=== PATIENT | male | born 1945 | race Caucasian/White ===

== ENCOUNTER 2020-04-25 09:23 | Observation (INO) ==
[2020-04-25] MEDS ORDERED: IOPAMIDOL 100 ML BOTTLE IV ONE (09:24)
[2020-04-25] MEDS ORDERED: LACTATED RINGERS 1,000 ML IV ONE (09:41)
--- NOTE | 2020-04-25 10:00 | XRay Report ---
INDICATION: shortness of breath, fever TECHNIQUE: AP portable upright chest x-ray COMPARISON: Previous chest x-rays dated to 11/15/2015 and 10/26/2015 FINDINGS: Lungs:Lungs are negative. No focal pulmonary parenchymal infiltrate or mass Heart, vascular:No significant cardiomegaly. Pulmonary vascularity is normal. No pulmonary edema or pulmonary congestion Mediastinum, young:No mediastinal widening. No hilar mass Pleura:No pleural fluid. No pleural-based mass or calcification. Right hemidiaphragm is slightly elevated, unchanged Skeletal:Negative. IMPRESSION: Negative PA and lateral chest x-ray Interpreted and Authenticated by: Adam Archuleta 04/25/20
--- NOTE | 2020-04-25 10:13 | Emergency Department Note ---
SOB HPI General Chief Complaint: Shortness of Breath/Dyspnea Stated Complaint: Fever, SOB Time Seen by Provider: 04/25/20 09:50 Source: patient Mode of arrival: ambulatory Limitations: no limitations History of Present Illness HPI Narrative: Narrative: This patient has been ill with shortness of breath and low-grade fever since last night. He has had no cough or chest pain no abdominal pain. [place] with his 2 daughters and has not been exposed to people although both daughters do work. MD Complaint: shortness of breath Onset (ago): hour(s) Severity: moderate Consistency/Duration: constant Improves with: nothing Worsens with: nothing Associated symptoms: Reports fever; Denies chest pain, pain with inspiration, cough, sputum production, orthopnea, palpitations, nausea/vomiting and abdominal pain Treatment prior to arrival: none Related Data Home Medications Medication Instructions Recorded Confirmed aspirin 81 mg chewable tablet 81 mg PO QDAY 05/14/18 04/25/20 metformin 500 mg tablet 1,000 mg PO BID tab 05/14/18 04/25/20 pravastatin 40 mg tablet 40 mg PO QDAY 05/14/18 04/25/20 amlodipine 10 mg PO DAILY 04/25/20 04/25/20 benazepril 20 mg PO DAILY 04/25/20 04/25/20 clopidogrel 75 mg PO DAILY 04/25/20 04/25/20 dulaglutide [Trulicity] 1.5 mg SUBCUT WEEKLY 04/25/20 04/25/20 Allergies Allergy/AdvReac Type Severity Reaction Status Date / Time No Known Drug Allergies Allergy Verified 10/22/19 08:41 Review of Systems ROS ROS Narrative: Narrative: All systems ED: reviewed and negative except as stated. PFSH Narrative Patient History Narrative: Narrative: Medical/Surgical/Family History All Active Problems (Updated 04/25/20 @ 16:46 by Shaggy Small MD) Arthritic-like pain (Acute) Acute cholecystitis (Acute) Left arm pain (Acute) Left arm numbness (Acute) Elbow pain, right (Acute) Foreign body of thumb, right, superficial (Acute) Social History Smoking Status: Former smoker Alcohol Intake Frequency: does not drink Substance Use: does not use Exam Narrative Narrative: Narrative: General Limitations: no limitations Head Head: atraumatic, normocephalic and normal inspection Eye Eye: Present normal appearance, PERRL and EOMI; Absent scleral icterus and conjunctival injection ENT ENT: Present normal exam and mucous membranes moist Neck Neck: Present normal inspection and full ROM Chest Chest: Present normal inspection and symmetric chest wall rise; Absent tenderness Respiratory Respiratory: Present normal lung sounds bilaterally; Absent respiratory distress, rales/crackles and wheezes Cardiovascular Cardiovascular: Present regular rate, normal rhythm and normal heart sounds Adbominal Abdominal: Present soft and normal bowel sounds; Absent distention and tenderness Extremities Extremities: Present normal inspection; Absent pedal edema and pretibial edema Neurological Neurological: Present alert Psychiatric Psychiatric: Present normal affect Skin Skin: Present warm and dry; Absent diaphoresis Course Vital Signs Vital signs: Vital Signs Temperature 100.9 F H 04/25/20 09:24 Pulse Rate 103 H 04/25/20 09:24 Respiratory Rate 26 H 04/25/20 09:24 Blood Pressure 117/88 04/25/20 09:24 Pulse Oximetry (%) 95 04/25/20 09:24 Temperature 99.8 F H 04/25/20 16:11 Pulse Rate 89 04/25/20 16:31 Respiratory Rate 31 H 04/25/20 14:31 Blood Pressure 148/83 04/25/20 16:31 Pulse Oximetry (%) 98 04/25/20 16:31 [facility] MDM Narrative Medical decision making narrative: Narrative: 1200 -patient's liver function tests are elevated with a bilirubin of 2.8. Lactic acid also elevated. He has no abdominal pain or tenderness. He has no history known of any abdominal cancer tumor or other abnormality. We will do blood cultures and cover him for infection and obtain a CT of chest abdomen pelvis. Patient CT scan is suggestive of cholecystitis but the patient is really not very tender. I spoke with Dr. Mcginnis the surgeon who is requesting an MRCP. We cannot do that here today. So we will see if there is another place I can do it. Despite feeling short of breath his chest x-ray is negative. The patient is very reluctant to go anywhere else but home at this time. We can do the MRCP here tomorrow. Is kind of unusual in that he has no pain tenderness and his alk phos is normal. This may not be the most ideal situation but given the patient's refusal to be transferred and desire to go home I will go ahead and schedule the MRCP for tomorrow and the patient will be requested to come back he re tonight if he gets worse at all. I repeated some of his lab work and his white count actually went up to 14.7 and his bilirubin went up to 3.3. His lactic acid did come down slightly to 2.1. Dr. Mcginnis was kind enough to go and admit the patient tonight and he will get his MRCP tomorrow. Lab Data Result diagrams: 04/25/20 15:17 04/25/20 15:17 Labs: Lab Results 04/25/20 04/25/20 04/25/20 Range/Units 09:43 09:43 09:43 WBC 9.8 (4.50-11.00) K/mcL RBC 4.48 L (4.63-6.08) M/mcL Hgb 13.7 (13.7-17.5) g/dL Hct 38.6 L (40.1-51.0) % MCV 86.2 (80.0-100.0) fL MCH 30.6 (26.0-34.0) pg MCHC 35.5 (31.0-36.0) g/dL RDW 12.9 (11.5-14.5) % Plt Count 146 (140-440) K/mcL MPV 10.9 H (7.4-10.4) fL Gran % (38.0-78.0) % Lymph % (Auto) (15.5-49.0) % [place] % (Auto) (1.0-12.0) % Eos % (Auto) (0.0-7.0) % Baso % (Auto) (0.0-2.0) % Gran # (1.80-8.00) K/mcL Lymph # (Auto) (1.50-4.80) K/mcL [place] # (Auto) (0.10-0.90) K/mcL Eos # (Auto) (0.00-0.70) K/mcL Baso # (Auto) (0.00-0.30) K/mcL Total Counted 100 Seg Neutrophils % 79 H (38-78) % Band Neutrophils % 2 (0-10) % Lymphocytes % 14 L (15-49) % Monocytes % (Manual) 5 (1-12) % Platelet Estimate Normal (NORMAL) RBC Morphology Normal (NORMAL) VBG Lactic Acid 3.1 H (0.5-2.0) mmol/L Sodium 135 (133-145) mmol/L Potassium 3.8 (3.3-5.1) mmol/L Chloride 98 (96-108) mmol/L Carbon Dioxide 20 L (22-30) mmol/L Anion Gap 17.0 H (8-16) BUN 14 (8-23) mg/dl Creatinine 0.9 (0.7-1.2) mg/dl GFR Calculation 82 Glucose 198 H (70-105) mg/dL Calcium 9.5 (8.6-10.4) mg/dl Total Bilirubin 2.6 H (0.0-1.0) mg/dL AST 544 H (0-37) U/l ALT 293 H (0-40) U/l Alkaline Phosphatase 90 (39-117) U/L Troponin T (0-0.03) ng/ml NT-Pro-B Natriuret Pep (0-450) pg/ml Total Protein 6.6 (5.9-8.4) gm/dL Albumin 3.8 (3.2-5.2) gm/dL Globulin 2.8 (2.2-3.7) gm/dL Albumin/Globulin Ratio 1.4 (1.0-2.3) Urine Color Urine Appearance Urine pH (5.0-9.0) Ur Specific [place] (1.000-1.035) Urine Protein (NEG) mg/dL Urine Glucose (UA) (NEG) mg/dL Urine Ketones (NEG) mg/dL Urine Occult Blood (<0.03) mg/dL Urine Nitrate (NEG) Urine Bilirubin (NEG) mg/dL Urine Urobilinogen (NEG) mg/dL Ur Leukocyte Esterase (NEG) /uL Urine RBC (0-1) /hpf Urine WBC (0-4) /hpf Ur Squamous Epith Cells (0-4) /hpf Amorphous Crystals (0) /hpf Urine Bacteria (0) /hpf Hyaline Casts (0-2) /lpf Urine Mucus (0) /hpf Ur Culture Indicated? 04/25/20 04/25/20 04/25/20 Range/Units 09:43 09:43 11:25 WBC (4.50-11.00) K/mcL RBC (4.63-6.08) M/mcL Hgb (13.7-17.5) g/dL Hct (40.1-51.0) % MCV (80.0-100.0) fL MCH (26.0-34.0) pg MCHC (31.0-36.0) g/dL RDW (11.5-14.5) % Plt Count (140-440) K/mcL MPV (7.4-10.4) fL Gran % (38.0-78.0) % Lymph % (Auto) (15.5-49.0) % [place] % (Auto) (1.0-12.0) % Eos % (Auto) (0.0-7.0) % Baso % (Auto) (0.0-2.0) % Gran # (1.80-8.00) K/mcL Lymph # (Auto) (1.50-4.80) K/mcL [place] # (Auto) (0.10-0.90) K/mcL Eos # (Auto) (0.00-0.70) K/mcL Baso # (Auto) (0.00-0.30) K/mcL Total Counted Seg Neutrophils % (38-78) % Band Neutrophils % (0-10) % Lymphocytes % (15-49) % Monocytes % (Manual) (1-12) % Platelet Estimate (NORMAL) RBC Morphology (NORMAL) VBG Lactic Acid (0.5-2.0) mmol/L Sodium (133-145) mmol/L Potassium (3.3-5.1) mmol/L Chloride (96-108) mmol/L Carbon Dioxide (22-30) mmol/L Anion Gap (8-16) BUN (8-23) mg/dl Creatinine (0.7-1.2) mg/dl GFR Calculation Glucose (70-105) mg/dL Calcium (8.6-10.4) mg/dl Total Bilirubin (0.0-1.0) mg/dL AST (0-37) U/l ALT (0-40) U/l Alkaline Phosphatase (39-117) U/L Troponin T < 0.01 (0-0.03) ng/ml NT-Pro-B Natriuret Pep 278.0 (0-450) pg/ml Total Protein (5.9-8.4) gm/dL Albumin (3.2-5.2) gm/dL Globulin (2.2-3.7) gm/dL Albumin/Globulin Ratio (1.0-2.3) Urine Color [place] Urine Appearance Clear Urine pH 6.0 (5.0-9.0) Ur Specific [place] 1.017 (1.000-1.035) Urine Protein 30 A (NEG) mg/dL Urine Glucose (UA) Negative (NEG) mg/dL Urine Ketones Neg (NEG) mg/dL Urine Occult Blood Neg (<0.03) mg/dL Urine Nitrate Neg (NEG) Urine Bilirubin Neg (NEG) mg/dL Urine Urobilinogen 2.0 A (NEG) mg/dL Ur Leukocyte Esterase Neg (NEG) /uL Urine RBC 0 (0-1) /hpf Urine WBC 2 (0-4) /hpf Ur Squamous Epith Cells 0 (0-4) /hpf Amorphous Crystals Few A (0) /hpf Urine Bacteria 0 (0) /hpf Hyaline Casts 2 (0-2) /lpf Urine Mucus Few (0) /hpf Ur Culture Indicated? No 04/25/20 04/25/20 04/25/20 Range/Units 15:17 15:17 15:18 WBC 14.7 H (4.50-11.00) K/mcL RBC 4.36 L (4.63-6.08) M/mcL Hgb 13.2 L (13.7-17.5) g/dL Hct 37.3 L (40.1-51.0) % MCV 85.6 (80.0-100.0) fL MCH 30.3 (26.0-34.0) pg MCHC 35.4 (31.0-36.0) g/dL RDW 13.0 (11.5-14.5) % Plt Count 170 (140-440) K/mcL MPV 11.0 H (7.4-10.4) fL Gran % 85.6 H (38.0-78.0) % Lymph % (Auto) 10.2 L (15.5-49.0) % [place] % (Auto) 4.0 (1.0-12.0) % Eos % (Auto) 0.1 (0.0-7.0) % Baso % (Auto) 0.1 (0.0-2.0) % Gran # 12.56 H (1.80-8.00) K/mcL Lymph # (Auto) 1.49 L (1.50-4.80) K/mcL [place] # (Auto) 0.58 (0.10-0.90) K/mcL Eos # (Auto) 0.01 (0.00-0.70) K/mcL Baso # (Auto) 0.02 (0.00-0.30) K/mcL Total Counted Seg Neutrophils % (38-78) % Band Neutrophils % (0-10) % Lymphocytes % (15-49) % Monocytes % (Manual) (1-12) % Platelet Estimate (NORMAL) RBC Morphology (NORMAL) VBG Lactic Acid 2.8 H (0.5-2.0) mmol/L Sodium 138 (133-145) mmol/L Potassium 3.9 (3.3-5.1) mmol/L Chloride 102 (96-108) mmol/L Carbon Dioxide 21 L (22-30) mmol/L Anion Gap 15.0 (8-16) BUN 12 (8-23) mg/dl Creatinine 0.9 (0.7-1.2) mg/dl GFR Calculation 82 Glucose 157 H (70-105) mg/dL Calcium 9.3 (8.6-10.4) mg/dl Total Bilirubin 3.3 H (0.0-1.0) mg/dL AST 422 H (0-37) U/l ALT 319 H (0-40) U/l Alkaline Phosphatase 86 (39-117) U/L Troponin T (0-0.03) ng/ml NT-Pro-B Natriuret Pep (0-450) pg/ml Total Protein 6.9 (5.9-8.4) gm/dL Albumin 3.9 (3.2-5.2) gm/dL Globulin 3.0 (2.2-3.7) gm/dL Albumin/Globulin Ratio 1.3 (1.0-2.3) Urine Color Urine Appearance Urine pH (5.0-9.0) Ur Specific [place] (1.000-1.035) Urine Protein (NEG) mg/dL Urine Glucose (UA) (NEG) mg/dL Urine Ketones (NEG) mg/dL Urine Occult Blood (<0.03) mg/dL Urine Nitrate (NEG) Urine Bilirubin (NEG) mg/dL Urine Urobilinogen (NEG) mg/dL Ur Leukocyte Esterase (NEG) /uL Urine RBC (0-1) /hpf Urine WBC (0-4) /hpf Ur Squamous Epith Cells (0-4) /hpf Amorphous Crystals (0) /hpf Urine Bacteria (0) /hpf Hyaline Casts (0-2) /lpf Urine Mucus (0) /hpf Ur Culture Indicated? Discharge Plan Patient/Caregiver Discharge Instructions Pt seen by [facility]ER[facility] TECHNICIAN/PA only: No Clinical Impression: Acute cholecystitis Activity Restrictions/Additional Instructions: PLEASE BE SURE TO GO TO YOUR APPOINTMENT AT [facility] TOMORROW 04/26/20 AT 9:00 A.M. FOR YOUR MRCP. PLEASE HAVE NOTHING AFTER MIDNIGHT. Patient Disposition: Xfer As Outpt/Obs ([facility]) Follow up with: Bhavana Macias MD [Primary Care Provider] - Prescriptions: No Action aspirin 81 mg tablet,chewable 81 mg PO QDAY RF: 0 metformin 500 mg tablet 1,000 mg PO BID RF: 0 pravastatin 40 mg tablet 40 mg PO QDAY RF: 0 clopidogrel 75 mg tablet 75 mg PO DAILY RF: 0 amlodipine 10 mg tablet 10 mg PO DAILY RF: 0 benazepril 20 mg tablet 20 mg PO DAILY RF: 0 Trulicity 1.5 mg/0.5 mL pen injector 1.5 mg subcut WEEKLY RF: 0
[2020-04-25] MEDS ORDERED: ACETAMINOPHEN 325 MG TABLET PO ONE ×2 (10:14→16:46)
[2020-04-25 10:45] LABS: Hematocrit 38.6 % (40.1-51.0); Hemoglobin 13.7 g/dL (13.7-17.5); Mean Cell Volume 86.2 fL (80.0-100.0); Mean Corpuscular HGB Conc 35.5 g/dL (31.0-36.0); Mean Platelet Volume 10.9 fL (7.4-10.4); Platelet Count 146 K/mcL (140-440); RBC 4.48 M/mcL (4.63-6.08); Red Cell Distribution Width 12.9 % (11.5-14.5); WBC 9.8 K/mcL (4.50-11.00)
[2020-04-25 11:03] LABS: Band Neutrophils % 2 % (0-10); Lymphocytes % 14 % (15-49); Monocytes % (Manual) 5 % (1-12); Platelet Estimate NORMAL (NORMAL); RBC Morphology NORMAL (NORMAL); Segmented Neutrophils % 79 % (38-78)
[2020-04-25 11:09] LABS: ALT/SGPT 293 U/l (0-40); AST/SGOT 544 U/l (0-37); Albumin 3.8 gm/dL (3.2-5.2); Albumin/Globulin Ratio 1.4 (1.0-2.3); Alkaline Phosphatase 90 U/L (39-117); Bilirubin,Total 2.6 mg/dL (0.0-1.0); Blood Urea Nitrogen 14 mg/dl (8-23); Calcium 9.5 mg/dl (8.6-10.4); Carbon Dioxide 20 mmol/L (22-30); Chloride 98 mmol/L (96-108); Globulin 2.8 gm/dL (2.2-3.7); Glomerular Filtration Rate 82; Glucose 198 mg/dL (70-105)
[2020-04-25] MEDS ORDERED: PIPERACILLIN SODIUM/TAZOBACTAM 3.375 GM in DEXTROSE 5% IN WATER 50 ML IV ONE (11:40)
[2020-04-25] MEDS ORDERED: LEVOFLOXACIN 750 MG/150 ML BAG IV ONE (11:40)
[2020-04-25] MEDS ORDERED: 0.9 % SODIUM CHLORIDE 1,000 ML IV ONE (12:26)
[2020-04-25 12:29] LABS: Appearance,Urine CLEAR; Bacteria,Urine 0 /hpf (0); Bilirubin,Urine NEG (NEG); Color,Urine AMBER; Culture Indicated,Urine NO; Glucose,Urine (UA) NEGATIVE (NEG); Ketones,Urine NEG (NEG); Leukocyte Esterase,Urine NEG /uL (NEG); Mucus,Urine FEW /hpf (0); Nitrate,Urine NEG (NEG); Protein,Urine 30 mg/dL (NEG); Specific Gravity,Urine 1.017 (1.000-1.035); Urine Amorphous Crystals FEW /hpf (0); Urine Blood NEG mg/dL (<0.03); Urine Hyaline Cast 2 /lpf (0-2); Urine RBC 0 /hpf (0-1); Urine Squamous Epithelial Cell 0 /hpf (0-4); Urine WBC 2 /hpf (0-4)
--- NOTE | 2020-04-25 12:56 | Cat Scan Report ---
INDICATION: Sepsis source COMPARISON: Chest x-ray dated 04/25/2020 TECHNIQUE: Axial images were obtained through the chest,abdomen and pelvis. Sagittally and coronally reformatted images. 80 ml Isovue 370 injected intravenously. Oral contrast material was not administered FINDINGS: Chest CT: Lungs:7 mm noncalcified subpleural nodule in the right middle lobe, image 84. Fleischner Society recommendations: 6-12 month and 18-24 month follow-up There is no significant honeycombing. There is reticular abnormality in both lungs. This is nonspecific. Mild interstitial edema or chronic interstitial disease is possible. There is no bronchiectasis. No significant centrilobular or paraseptal emphysema Mediastinum:There are small mediastinal lymph nodes. Largest pretracheal node measures 10 mm. There are small epicardial nodes. Largest node measures 9 mm. No pathologic hilar adenopathy. Heart:No significant cardiomegaly. No pericardial effusion. There is severe calcified coronary artery disease Pleura:No pleural fluid. No pleural-based mass. No pleural calcifications Axilla, supraclavicular regions, chest wall:Small nonspecific axillary lymph nodes. No enlarged node. No supraclavicular adenopathy. Musculoskeletal:Negative thoracic spine. No compression fractures. No lytic lesions. No paraspinal mass Abdomen/Pelvis: Liver:Negative liver. No focal intrahepatic mass. Liver contour is smooth. There is no ascites Gallbladder, bilary:There are calcified gallstones in the dependent portion of the gallbladder lumen. There is mild or borderline gallbladder wall thickening. There is mild pericholecystic fluid. Cholecystitis is possible. No dilated bile ducts. No detectable choledocholithiasis. Common bile duct measures 5 to 6 mm. Spleen:No splenomegaly. No focal intrasplenic abnormality. Normal enhancement of splenic and portal veins. Pancreas:No pancreatic mass. No peripancreatic abnormality Adrenal glands:Negative Kidneys, ureters, bladder: There are left renal cysts. There is no solid renal mass. No hydronephrosis. No hydroureter. No ureteral stones Bladder is grossly negative. No bladder calculi Gastrointestinal:No detectable colonic mass. There is no diverticulitis. Prominent fecal material within the rectum. Fecal impaction is possible. No significant pneumatosis. Small bowel is negative. No mechanical small bowel obstruction. Stomach and duodenum are within normal limits Appendix: The appendix is negative Vascular:Severe calcified atherosclerotic disease within the abdominal aorta. There is dense calcification at the origin of the superior mesenteric artery. There is low density consistent with intraluminal thrombus and significant origin stenosis. Superior mesenteric artery is otherwise patent and negative. There is calcification at the origin of the celiac trunk without stenosis. There is severe calcified plaque in the renal arteries with probable bilateral renal artery stenosis. Lymphatic:No pathologic retroperitoneal or mesenteric adenopathy Mesentery, peritoneum:No free intraperitoneal fluid. No intra-abdominal abscess. No pneumoperitoneum. 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 No lytic lesions. Sacrum, pelvis, hips are negative. No inguinal or abdominal wall hernia IMPRESSION: 1. Cholelithiasis and pericholecystic fluid. Appearance is consistent with cholecystitis 2. Severe atherosclerotic disease. There is calcified plaque and intraluminal thrombus at the origin of the superior mesenteric artery. Findings are consistent with high-grade stenosis 3. 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 Prominent fecal material within the rectum. No pneumatosis or CT evidence for stercoral colitis 5. 7 mm noncalcified right middle lobe nodule. Follow up recommendations given above The exam was performed using radiation dose optimization techniques including, but not limited to, automated exposure control, adjustment of the mA and/or kV according to patient size and use of iterative reconstruction technique. Interpreted and Authenticated by: Adam Archuleta 04/25/20
[2020-04-25 16:02] LABS: Basophils # (Auto) 0.02 K/mcL (0.00-0.30); Basophils % (Auto) 0.1 % (0.0-2.0); Eosinophils # (Auto) 0.01 K/mcL (0.00-0.70); Eosinophils % (Auto) 0.1 % (0.0-7.0); Granulocytes % (Auto) 85.6 % (38.0-78.0); Hematocrit 37.3 % (40.1-51.0); Hemoglobin 13.2 g/dL (13.7-17.5); Lymphocytes # (Auto) 1.49 K/mcL (1.50-4.80); Lymphocytes % (Auto) 10.2 % (15.5-49.0); Mean Cell Volume 85.6 fL (80.0-100.0); Mean Corpuscular HGB Conc 35.4 g/dL (31.0-36.0); Monocytes # (Auto) 0.58 K/mcL (0.10-0.90); Platelet Count 170 K/mcL (140-440); RBC 4.36 M/mcL (4.63-6.08); WBC 14.7 K/mcL (4.50-11.00)
[2020-04-25 16:24] LABS: ALT/SGPT 319 U/l (0-40); AST/SGOT 422 U/l (0-37); Albumin 3.9 gm/dL (3.2-5.2); Albumin/Globulin Ratio 1.3 (1.0-2.3); Alkaline Phosphatase 86 U/L (39-117); Bilirubin,Total 3.3 mg/dL (0.0-1.0); Blood Urea Nitrogen 12 mg/dl (8-23); Calcium 9.3 mg/dl (8.6-10.4); Carbon Dioxide 21 mmol/L (22-30); Chloride 102 mmol/L (96-108); Glomerular Filtration Rate 82; Glucose 157 mg/dL (70-105)
[2020-04-25] MEDS ORDERED: ZOLPIDEM 5 MG TABLET PO PRN (17:10)
[2020-04-25] MEDS ORDERED: ONDANSETRON 4 MG/2 ML VIAL IV PRN (17:10)
[2020-04-25 20:15] LABS: INR 1.4 (0.9-1.1); Prothrombin Time 17.8 sec (11.9-14.5)
[2020-04-25] MEDS: ACETAMINOPHEN 1,000 MG/100 ML BOTTLE IV SCH (21:47)
[2020-04-25] MEDS: PIPERACILLIN SODIUM/TAZOBACTAM 3.375 GM in DEXTROSE 5% IN WATER 50 ML IV SCH (21:48)
[2020-04-25] MEDS: 0.9 % SODIUM CHLORIDE 1,000 ML IV SCH (21:49)
[2020-04-25] MEDS: INSULIN LISPRO 1 UNIT/0.01 ML UNIT SQ SCH (21:50)
[2020-04-26] MEDS: INSULIN LISPRO 1 UNIT/0.01 ML UNIT SQ SCH ×4 (00:30→18:04)
[2020-04-26] MEDS: 0.9 % SODIUM CHLORIDE 1,000 ML IV SCH ×4 (00:30→19:35)
[2020-04-26] MEDS: PIPERACILLIN SODIUM/TAZOBACTAM 3.375 GM in DEXTROSE 5% IN WATER 50 ML IV SCH ×5 (00:40→17:11)
[2020-04-26] MEDS: ACETAMINOPHEN 1,000 MG/100 ML BOTTLE IV SCH ×3 (00:42→12:44)
[2020-04-26 07:11] LABS: Basophils # (Auto) 0.02 K/mcL (0.00-0.30); Basophils % (Auto) 0.2 % (0.0-2.0); Eosinophils # (Auto) 0.18 K/mcL (0.00-0.70); Granulocytes % (Auto) 79.1 % (38.0-78.0); Hematocrit 34.5 % (40.1-51.0); Hemoglobin 12.2 g/dL (13.7-17.5); Lymphocytes # (Auto) 1.05 K/mcL (1.50-4.80); Lymphocytes % (Auto) 11.6 % (15.5-49.0); Mean Corpuscular HGB Conc 35.4 g/dL (31.0-36.0); Mean Platelet Volume 11.1 fL (7.4-10.4); Monocytes # (Auto) 0.64 K/mcL (0.10-0.90); Monocytes % (Auto) 7.1 % (1.0-12.0); Platelet Count 136 K/mcL (140-440); RBC 3.92 M/mcL (4.63-6.08); Red Cell Distribution Width 13.3 % (11.5-14.5)
[2020-04-26 07:39] LABS: ALT/SGPT 213 U/l (0-40); AST/SGOT 158 U/l (0-37); Albumin 3.6 gm/dL (3.2-5.2); Albumin/Globulin Ratio 1.4 (1.0-2.3); Alkaline Phosphatase 78 U/L (39-117); Bilirubin,Direct 4.5 mg/dL (0.0-0.3); Bilirubin,Total 5.4 mg/dL (0.0-1.0); Blood Urea Nitrogen 9 mg/dl (8-23); Calcium 8.7 mg/dl (8.6-10.4); Carbon Dioxide 22 mmol/L (22-30); Chloride 106 mmol/L (96-108); Globulin 2.5 gm/dL (2.2-3.7); Glomerular Filtration Rate 86; Glucose 163 mg/dL (70-105); Lactate Dehydrogenase 202 U/L (94-250); Phosphorous 2.6 mg/dL (2.7-4.5); Triglycerides 62 mg/dl (<150)
[2020-04-26] MEDS: PANTOPRAZOLE 40 MG VIAL IV SCH ×2 (08:17→17:11)
--- NOTE | 2020-04-26 12:24 | Magnetic Resonance Report ---
INDICATION: elevated lft's ;r/o cbd stones TECHNIQUE: Routine noncontrast MRCP COMPARISON: Previous CT scan dated 04/25/2020 FINDINGS: Multiple small stones in the dependent portion of the gallbladder. Gallbladder wall appears edematous with irregular thickening. Gallbladder wall measures approximately 5 mm maximum thickness. Minimal pericholecystic and perihepatic fluid. Common hepatic duct and common bile duct are negative. No intraluminal filling defect. No choledocholithiasis. No stricture. Pancreatic duct appears normal. No focal intrahepatic abnormality. Liver contour is smooth. Negative spleen. No splenomegaly. Pancreas is negative. No pancreatic mass Negative adrenal glands Small benign renal cysts. No solid mass. No hydronephrosis IMPRESSION: 1. Cholelithiasis 2. Mildly thickened gallbladder wall measures approximately 5 mm. There is minimal pericholecystic and perihepatic fluid 3. Normal common hepatic duct and common bile duct. No choledocholithiasis Interpreted and Authenticated by: Adam Archuleta 04/26/20
--- NOTE | 2020-04-26 13:52 | General Surgery Progress Note ---
SUBJECTIVE Subjective Patient information: Note initiated : 04/26/20 at 1:45 pm Service Date, if different from initiated Date: [] Patient: Jesús Epps 75 y/o M admitted on 04/25/20 for Fever, SOB. Chief Complaint: [] Interval history: Narrative:patient states he has less discomfort. He denies nausea. Labs revealed 5.4 GGT 258, GOT 2158, alkaline phosphatase 78. White blood count 9, hemoglobin 12.2, hematocrit 34.5, easier for us to 6. MRCP shows multiple stones in the gallbladder with thickened irregular gallbladder wall. The common bile duct is normal size without any filling defects. Pancreatic duct is also normal. Patient counseled for laparoscopic cholecystectomy will be performed tomorrow morning. Constitutional Vitals: Vital Signs Temp Pulse Resp BP Pulse Ox 98.3 F 79 18 138/72 97 04/26/20 12:00 04/26/20 12:00 04/26/20 12:00 04/26/20 12:00 04/26/20 12:00 Period Temp Pulse Resp BP Sys/[place] Pulse Ox Last 24 Hr 97.1 F-101.4 F 73-92 18-31 110-160/60-90 93-99 Intake and Output 04/25/20 04/26/20 04/26/20 21:59 05:59 13:59 Intake Total 50 1400 250 Output Total 300 800 500 Balance -250 600 -250 Weight 244 lb Intake & Output: Intake & Output 04/25/20 04/26/20 04/26/20 21:59 05:59 13:59 Intake Total 50 1400 250 Output Total 300 800 500 Balance -250 600 -250 Weight 244 lb Intake: IV 50 1300 250 Sodium Chloride 0.9% 1,000 ml @ 1000 150 mls/hr IV .[id number] [id number] Rx#: [id number] Zosyn 3.375 gm In Dextrose 5% 50 100 50 in Water 50 ml @ 100 mls/hr IV Q6H ABDIFATAH Rx#:[id number] Oral 100 Output: Void Amount 300 800 500 Other: Urine Appearance Clear Urine Color Dark Yellow [place] Dark Snow Urine Odor Normal Strong Head Head exam: Present atraumatic, normal inspection and normocephalic Eye Eye exam: Present EOMI and scleral icterus Pupils: Present PERRL ENT ENT exam: Present mucous membranes moist, normal exam and normal oropharynx Neck Neck exam: Present full ROM; Absent tenderness and thyromegaly Respiratory Respiratory exam: Present normal respiratory exam and CTAB; Absent rales, rhonchi and wheezes Cardiovascular Cardiovascular exam: Present normal rate and rhythm, +S1 and +S2; Absent tachycardia GI/Abdominal GI/Abdominal exam: Present normal bowel sounds, soft, distended and tenderness (mild epigastric tenderness); Absent mass and organomegaly Extremities Exam Extremities exam: Present full ROM, normal inspection and neurovascular intact; Absent pedal edema and tenderness Back Exam Back exam: Present full ROM; Absent CVA tenderness (L) and CVA tenderness (R) Neurological Exam Neurological exam: Present CN II-XII intact, normal gait, oriented X3 and reflexes normal; Absent motor sensory deficit Psychiatric Psychiatric exam: Present anxious and normal affect A/P Assessment and plan (1) Cholecystitis, acute with cholelithiasis: Status: Acute Comment: patient is counseled for laparoscopic cholecystectomy and it will be performed tomorrow Time Spent With Patient Time: Total time spent is greater than 50% in coordination of care (as documented) at patient's floor/unit and/or counseling patient:
[2020-04-26] MEDS ORDERED: MAGNESIUM SULFATE 4 GM/100 ML BAG IV SCH (18:00)
[2020-04-27] MEDS: PIPERACILLIN SODIUM/TAZOBACTAM 3.375 GM in DEXTROSE 5% IN WATER 50 ML IV SCH ×5 (00:42→17:00)
[2020-04-27] MEDS: INSULIN LISPRO 1 UNIT/0.01 ML UNIT SQ SCH ×4 (00:45→22:19)
[2020-04-27] MEDS: 0.9 % SODIUM CHLORIDE 1,000 ML IV SCH ×4 (02:55→19:50)
[2020-04-27] MEDS: PANTOPRAZOLE 40 MG VIAL IV SCH ×2 (07:15→18:38)
[2020-04-27 07:48] LABS: Basophils # (Auto) 0.04 K/mcL (0.00-0.30); Basophils % (Auto) 0.6 % (0.0-2.0); Eosinophils # (Auto) 0.23 K/mcL (0.00-0.70); Eosinophils % (Auto) 3.4 % (0.0-7.0); Granulocytes % (Auto) 68.1 % (38.0-78.0); Hematocrit 33.8 % (40.1-51.0); Hemoglobin 12.2 g/dL (13.7-17.5); Lymphocytes # (Auto) 1.36 K/mcL (1.50-4.80); Lymphocytes % (Auto) 20.1 % (15.5-49.0); Mean Corpuscular HGB Conc 36.1 g/dL (31.0-36.0); Mean Platelet Volume 11.3 fL (7.4-10.4); Monocytes # (Auto) 0.53 K/mcL (0.10-0.90); Monocytes % (Auto) 7.8 % (1.0-12.0); Platelet Count 133 K/mcL (140-440); RBC 3.93 M/mcL (4.63-6.08); Red Cell Distribution Width 13.2 % (11.5-14.5); WBC 6.8 K/mcL (4.50-11.00)
[2020-04-27 08:01] LABS: Chloride 102 mmol/L (96-108)
[2020-04-27 08:02] LABS: ALT/SGPT 141 U/l (0-40); AST/SGOT 82 U/l (0-37); Albumin 3.2 gm/dL (3.2-5.2); Albumin/Globulin Ratio 1.2 (1.0-2.3); Alkaline Phosphatase 107 U/L (39-117); Bilirubin,Total 4.6 mg/dL (0.0-1.0); Blood Urea Nitrogen 6 mg/dl (8-23); Calcium 8.2 mg/dl (8.6-10.4); Carbon Dioxide 20 mmol/L (22-30); Globulin 2.6 gm/dL (2.2-3.7); Glomerular Filtration Rate 82; Glucose 144 mg/dL (70-105); Lactate Dehydrogenase 174 U/L (94-250); Phosphorous 2.2 mg/dL (2.7-4.5); Triglycerides 116 mg/dl (<150); Uric Acid 2.3 mg/dL (2.5-8.0)
[2020-04-27] MEDS ORDERED: PHENYLEPHRINE 10 MG/ML VIAL IV ONE (10:48)
[2020-04-27] MEDS ORDERED: SUCCINYLCHOLINE 20 MG/ML ML IV ONE (10:48)
[2020-04-27] MEDS ORDERED: fentaNYL 250 MCG/5 ML VIAL IV ONE (10:48)
[2020-04-27] MEDS ORDERED: HYDROmorphone 1 MG/ML SYRINGE IV ONE (10:48)
[2020-04-27] MEDS ORDERED: SUGAMMADEX SODIUM 200 MG/2 ML VIAL IV ONE (10:48)
[2020-04-27] MEDS ORDERED: PROPOFOL 200 MG/20 ML VIAL IV ONE (10:48)
[2020-04-27] MEDS ORDERED: ONDANSETRON 4 MG/2 ML VIAL IV ONE (10:48)
[2020-04-27] MEDS ORDERED: ROCURONIUM 10 MG/ML ML IV ONE (10:48)
[2020-04-27] MEDS ORDERED: LIDOCAINE HCL/PF 100 MG/5 ML SYRINGE IV ONE (10:48)
[2020-04-27] MEDS ORDERED: KETAMINE 100 MG/ML ML IV ONE (10:48)
[2020-04-27] MEDS ORDERED: DEXAMETHASONE 10 MG/ML VIAL IV ONE (10:48)
[2020-04-27] MEDS ORDERED: GLYCOPYRROLATE 0.2 MG/ML VIAL IV ONE (10:48)
[2020-04-27] MEDS ORDERED: IPRATROPIUM/ALBUTEROL 3 ML AMPUL.NEB NEB PRN (12:09)
[2020-04-27] MEDS ORDERED: BENZOCAINE/MENTHOL 1 LOZENGE PO PRN ×2 (12:09→13:26)
[2020-04-27] MEDS ORDERED: fentaNYL 100 MCG/2 ML VIAL IV PRN (12:09)
[2020-04-27] MEDS ORDERED: PROMETHAZINE 25 MG/ML VIAL IM PRN (12:09)
[2020-04-27] MEDS ORDERED: KETOROLAC 15 MG/ML VIAL IV PRN (12:09)
[2020-04-27] MEDS ORDERED: MEPERIDINE 50 MG/ML INJECTION IM PRN (12:09)
[2020-04-27] MEDS ORDERED: MEPERIDINE 25 MG/ML SYRINGE IV PRN (12:09)
[2020-04-27] MEDS ORDERED: ONDANSETRON 4 MG/2 ML VIAL IV PRN ×2 (12:09→13:26)
[2020-04-27] MEDS ORDERED: ACETAMINOPHEN 1,000 MG/100 ML BOTTLE IV ONE ×2 (12:09→13:26)
[2020-04-27] MEDS ORDERED: HYDROmorphone 0.5 MG/0.5 ML SYRINGE IV PRN (12:09)
--- NOTE | 2020-04-27 12:09 | Brief Operative Note ---
Brief Operative Note Date of procedure: 04/27/20 Pre-op diagnosis: ACUTE CHOLECYSTITIS WITH CHOLELITHIASIS Post-op diagnosis: other (ACUTE CHOLECYSTITIS WITH CHOLELITHIASIS) Procedure: LAPAROSCOPIC CHOLECYSTECTOMY Grafts/Implants: No (SHIRA DRAIN X1) Anesthesia: GETA Findings: ACUTE SEVERE INFLAMMATION WITH STONES Complications: none Surgeon: Aysha Mcginnis Estimated blood loss (cc): 10 Specimens Removed/Pathology: other (GALLBLADDER) Condition: stable Disposition: PACU
--- NOTE | 2020-04-27 12:10 | Brief Operative Note ---
Brief Operative Note Date of procedure: 04/27/20 Surgeon: Aysha Mcginnis
[2020-04-27] MEDS ORDERED: LACTATED RINGERS 1,000 ML IV SCH (12:15)
[2020-04-27] MEDS ORDERED: oxyCODONE/APAP 5/325MG TABLET PO PRN (17:46)
[2020-04-27] MEDS ORDERED: INSULIN LISPRO 1 UNIT/0.01 ML UNIT SQ SCH (18:00)
[2020-04-27] MEDS: HYDROmorphone 1 MG/ML SYRINGE IV PRN ×2 (18:02→22:56)
[2020-04-27] MEDS: HYDROmorphone 1 MG/ML SYRINGE ONE ×2 (18:05→23:04)
[2020-04-27] MEDS ORDERED: ZOLPIDEM 5 MG TABLET PO PRN (21:00)
[2020-04-28] MEDS: PIPERACILLIN SODIUM/TAZOBACTAM 3.375 GM in DEXTROSE 5% IN WATER 50 ML IV SCH ×4 (00:31→18:24)
[2020-04-28] MEDS: 0.9 % SODIUM CHLORIDE 1,000 ML IV SCH ×3 (03:27→18:22)
[2020-04-28 06:36] LABS: Basophils # (Auto) 0.01 K/mcL (0.00-0.30); Basophils % (Auto) 0.2 % (0.0-2.0); Eosinophils # (Auto) 0 K/mcL (0.00-0.70); Eosinophils % (Auto) 0 % (0.0-7.0); Granulocytes % (Auto) 74.1 % (38.0-78.0); Hematocrit 33.2 % (40.1-51.0); Hemoglobin 12.4 g/dL (13.7-17.5); Lymphocytes # (Auto) 1.24 K/mcL (1.50-4.80); Lymphocytes % (Auto) 22.9 % (15.5-49.0); Mean Cell Volume 90.5 fL (80.0-100.0); Mean Corpuscular HGB Conc 37.3 g/dL (31.0-36.0); Mean Platelet Volume 11.1 fL (7.4-10.4); Monocytes # (Auto) 0.15 K/mcL (0.10-0.90); Monocytes % (Auto) 2.8 % (1.0-12.0); Platelet Count 130 K/mcL (140-440); RBC 3.67 M/mcL (4.63-6.08); Red Cell Distribution Width 14.3 % (11.5-14.5); WBC 5.4 K/mcL (4.50-11.00)
[2020-04-28 06:53] LABS: ALT/SGPT 123 U/l (0-40); AST/SGOT 63 U/l (0-37); Albumin 3.2 gm/dL (3.2-5.2); Albumin/Globulin Ratio 1.1 (1.0-2.3); Alkaline Phosphatase 134 U/L (39-117); Bilirubin,Total 2.5 mg/dL (0.0-1.0); Calcium 7.7 mg/dl (8.6-10.4); Carbon Dioxide 20 mmol/L (22-30); Chloride 105 mmol/L (96-108); Globulin 2.8 gm/dL (2.2-3.7); Glomerular Filtration Rate 86; Glucose 232 mg/dL (70-105); Lactate Dehydrogenase 175 U/L (94-250); Triglycerides 88 mg/dl (<150); Uric Acid 2.1 mg/dL (2.5-8.0)
[2020-04-28 06:55] LABS: Bilirubin,Direct 1.9 mg/dL (0.0-0.3); Blood Urea Nitrogen 8 mg/dl (8-23)
[2020-04-28] MEDS: PANTOPRAZOLE 40 MG VIAL IV SCH ×2 (07:28→18:22)
[2020-04-28] MEDS: INSULIN LISPRO 1 UNIT/0.01 ML UNIT SQ SCH ×3 (07:33→18:24)
[2020-04-28] MEDS ORDERED: ASPIRIN 81 MG TAB.CHEW PO SCH (09:00)
[2020-04-28] MEDS ORDERED: amLODIPine 10 MG TABLET PO SCH (09:00)
[2020-04-28] MEDS ORDERED: LISINOPRIL 20 MG TABLET PO SCH (09:00)
--- NOTE | 2020-04-28 18:17 | Discharge Summary ---
Discharge Provider Provider Patient information: Note initiated : 04/28/20 at 6:06 pm Service Date, if different from initiated Date: [] Patient: Jesús Epps 75 y/o M admitted on 04/25/20 for Fever, SOB. Chief Complaint: [] Date of admission: 04/25/20 17:25 Discharge date: 04/28/20 Primary care physician: Bhavana Macias Admitting clinician: Aysha Mcginnis Attending physician on admission: Aysha Mcginnis Consults: 04/25/20 Consult to Physician [CONS] Stat Comment: Consulting Provider: Aysha Mcginnis Reason For Exam: Physician to Consult Attending physician on discharge: Aysha Mcginnis Discharging clinician: Aysha Mcginnis COURSE Hospital Course Hospital Course: 75-year-old male presented to the emergency room with fever and lethargy. He was not having any major discomfort however it was noted that his liver panel was abnormal. He was noted also to have gallstones but the duct could not be adequately evaluated. He was convinced to be admitted and had an MRCP on the which showed no evidence of common bile duct stones within normal size duct. He underwent cholecystectomy yesterday. He has done well since then and is stable for discharge home. Discharge diagnosis: cholelithiasis with cholecystitis Secondary discharge diagnosis: elevated liver panel secondary to #1 Reason for admission: cholecystitis with cholelithiasis Procedures: laparoscopic cholecystectomy Pertinent studies/significant findings: CT of abdomen and pelvis MRCP Complications: none Time Spent with Patient Time attestation: Total time spent providing and/or coordinating discharge services: Physical Examination Vital Signs Vital signs: Temp Pulse Resp BP Pulse Ox 98.0 F 64 17 147/74 95 04/28/20 16:00 04/28/20 16:00 04/28/20 16:00 04/28/20 16:00 04/28/20 16:00 General physical appearance General physical exam: well developed, well nourished, no distress and moderate pain Eyes Eye exam: PERRL, normal ocular movement and icteric ENT ENT exam: normal nares, normal mucosa, no hearing loss and no congestion Head Head exam IM: Present atraumatic, normal inspection and normocephalic Neck Neck exam: no masses, no bruits, trachea midline, no lymphadenopathy and no venous distension Cardiovascular Cardiovascular exam IM: Present normal rate and rhythm, RRR, +S1 and +S2; Absent gallop and JVD Respiratory Respiratory exam: normal expansion, normal respiratory effort, clear to percussion and clear to auscultation Abdomen Abdomen: Present soft and tender (mild incisional tenderness is) Integumentary Integumentary: Present no rash, no growths and no abnormal pigmentation Neurologic Neurologic: Present normal coordination and normal sensation Musculoskeletal Musculoskeletal: Present normal gait and normal posture Psychiatric Psychiatric: Present oriented to time, oriented to person, oriented to place, speech is normal, memory intact and other Discharge Plan Patient/Caregiver Discharge Instructions Activity: increase activity as tolerated Diet: Regular Diet Instructions: Laparoscopic Cholecystectomy (DC) Prescriptions: New oxycodone-acetaminophen [Endocet] 10-325 mg Tablet 1 tab PO Q4H PRN (Reason: Pain) Qty: 60 RF: 0 Continued aspirin 81 mg tablet,chewable 81 mg PO QDAY RF: 0 metformin 500 mg tablet 1,000 mg PO BID RF: 0 pravastatin 40 mg tablet 40 mg PO QDAY RF: 0 clopidogrel 75 mg tablet 75 mg PO DAILY RF: 0 amlodipine 10 mg tablet 10 mg PO DAILY RF: 0 benazepril 20 mg tablet 20 mg PO DAILY RF: 0 Trulicity 1.5 mg/0.5 mL pen injector 1.5 mg subcut WEEKLY RF: 0 Follow Up Plan Follow up with: Aysha Mcginnis MD [Physician] - 05/12/20 9:30 am Patient Disposition: Home, Self-Care Hospital Course: 75-year-old male presented to the emergency room with fever and lethargy. He was not having any major discomfort however it was noted that his liver panel was abnormal. He was noted also to have gallstones but the duct could not be adequately evaluated. He was convinced to be admitted and had an MRCP on the which showed no evidence of common bile duct stones within normal size duct. He underwent cholecystectomy yesterday. He has done well since then and is stable for discharge home. Prognosis: Good Rehab Potential: Good I certify that the patient requires SNF services: No Overall status at discharge: patient is progressing back to baseline Discharge Orders: Discharge Order (Routine); Ordered 04/28/20 Ordered By: Aysha Mcginnis Interventions Interventions: IV at Discharge Last Done: 04/28/20 17:27 Pending Pending Pending: Resuscitation Status Full Code Diet GI Soft/Transitional Start Whitney Oj 07 Amlodipine Besylate (Norvasc) 10 mg PO DAILY [facility] Last Admin: 04/28/20 09:14 Dose: 10 mg Documented by: Melvin Aspirin (Aspirin) 81 mg PO QDAY [facility] Last Admin: 04/28/20 09:14 Dose: 81 mg Documented by: LEELA Diagnostic Test (Pha) (Accu-Chek) 1 each FS ACHS [facility] Last Admin: 04/28/20 11:15 Dose: 1 each Documented by: Admin: 04/28/20 07:33 Dose: 1 each Documented by: Admin: 04/27/20 19:50 Dose: 1 each Documented by: Admin: 04/27/20 17:54 Dose: 1 each Documented by: WILLE Hydromorphone HCl (Dilaudid) 1 mg IV Q2HP PRN; Protocol PRN Reason: Per Pain Protocol Last Admin: 04/27/20 22:56 Dose: 1 mg Documented by: Admin: 04/27/20 18:02 Dose: 1 mg Documented by: MARCELLA Sodium Chloride (Sodium Chloride 0.9%) 1,000 mls @ 150 mls/hr IV .Q6H40M [facility] Last Admin: 04/28/20 11:15 Dose: 150 mls/hr Documented by: Infusion: 04/28/20 10:08 Dose: 150 mls/hr Documented by: Melvin Admin: 04/28/20 03:27 Dose: 150 mls/hr Documented by: Infusion: 04/28/20 02:31 Dose: 150 mls/hr Documented by: Admin: 04/27/20 19:50 Dose: 150 mls/hr Documented by: Admin: 04/27/20 17:47 Dose: Not Given Documented by: Melivn Piperacillin Sod/Tazobactam (Sod 3.375 gm/ Dextrose) 50 mls @ 100 mls/hr IV Q6H [facility]; Protocol Last Infusion: 04/28/20 12:45 Dose: 0 mls/hr Documented by: Melvin Admin: 04/28/20 12:13 Dose: 100 mls/hr Documented by: Infusion: 04/28/20 09:45 Dose: 0 mls/hr Documented by: [facility] Admin: 04/28/20 05:13 Dose: 100 mls/hr Documented by: Infusion: 04/28/20 01:01 Dose: 100 mls/hr Documented by: Admin: 04/28/20 00:31 Dose: 100 mls/hr Documented by: Infusion: 04/27/20 17:30 Dose: 100 mls/hr Documented by: Admin: 04/27/20 17:00 Dose: 100 mls/hr Documented by: Infusion: 04/27/20 14:48 Dose: 100 mls/hr Documented by: Admin: 04/27/20 14:18 Dose: 100 mls/hr Documented by: MARCELLA Insulin Human Lispro (Humalog) 0 unit SQ ACHS [facility]; Protocol Stop: 05/27/20 21:59 Last Admin: 04/28/20 11:18 Dose: 8 unit Documented by: [facility] Admin: 04/28/20 07:33 Dose: 4 unit Documented by: [facility] Admin: 04/27/20 22:19 Dose: 8 unit Documented by: MEHUL Lisinopril (Zestril) 20 mg PO DAILY [facility] Last Admin: 04/28/20 09:14 Dose: 20 mg Documented by: Melvin Oxycodone/Acetaminophen (Percocet 5-325 Mg) 1 - 2 tab PO Q4H PRN; Protocol PRN Reason: Per Pain Protocol Last Admin: 04/28/20 03:28 Dose: 1 tab Documented by: MEHUL Pantoprazole Sodium (Protonix) 40 mg IV BIDAC [facility] Last Admin: 04/28/20 07:28 Dose: 40 mg Documented by: [facility] Admin: 04/27/20 18:38 Dose: Not Given Documented by: MEHUL Shift Summary 04/28/20 04:40 Shift Summary by Elisabet Montero 127- S/P Lap Marlys, lap sites Xs 4 with ayse and Tegaderm. JAMEEL to RUQ with SS output (160cc). Voids freely. NS at 150/hour to LFA. begin GI Soft in am, tolerates diet well. Painful at times: given Dilaudid 1mg IV, IV Tylenol, Last was Percocet 5-325 at 0330. Drowsy/Sleeping but wakens easily. Maybe home today?? VSS on RA. Will update at bedside. Initialized on 04/28/20 04:40 - END OF NOTE
--- NOTE | 2020-04-29 12:14 | Surgical Pathology Report ---
HISTOLOGY SPECIMEN MICROSCOPIC DIAGNOSIS GALLBLADDER, CHOLECYSTECTOMY: -- CHRONIC CHOLECYSTITIS. -- CHOLELITHIASIS. -- ONE PERICYSTIC LYMPH WITH REACTIVE LYMPHOID HYPERPLASIA. (DMT:sln) GROSS DESCRIPTION Received in formalin labeled with the patient information, is a 10.3 x 4 x 4 cm green-reina gallbladder. The serosal surface is smooth and glistening. There are multiple metal clips present and the cystic duct is stapled closed. The lumen contains watery pale zheng-green fluid and multiple smooth black multifacted stones ranging in size from 0.1 to 0.9 cm in greatest dimension. Several of the smaller stones are found lodged within the cystic duct. The mucosa is pale pink-reina and velvety. The wall is up to 0.5 cm thick. Assistant Banquet Manager sections submitted - one cassette. (STS:sln) Electronically Signed by: Layo Michelle M.D.
--- NOTE | 2020-05-09 15:49 | Operative Note ---
DATE OF OPERATION: 04/27/2020 PREOPERATIVE DIAGNOSIS: Acute cholecystitis with cholelithiasis. POSTOPERATIVE DIAGNOSIS: Acute cholecystitis with cholelithiasis. PROCEDURE: Laparoscopic cholecystectomy. SURGEON: Aysha Mcginnis M.D. FINDINGS: Acute severe inflammation of the gallbladder with stones. DESCRIPTION OF PROCEDURE: Under general anesthesia, the patient's abdomen was prepped and draped in the sterile field. Timeout procedure was carried out as per protocol. Supraumbilical incision was made and Veress needle inserted. Abdomen was insufflated with 3 liters of CO2. A 12 mm port was placed. Under videoscopic guidance, a 12 mm port and two 5 mm ports were placed in the right subcostal region. The omentum was covering the gallbladder. Using blunt dissection, the omentum was dissected off the gallbladder until it could be found. It was partially decompressed because of the tight, thickened wall of the gallbladder. Using further blunt dissection, the inflamed omentum was dissected back off the gallbladder until the infundibulum could be found. The infundibulum was then clamped. The cystic duct and cystic artery were dissected until they were definitively identified. Cystic duct was very thick, so it was clamped with an Endo TISHA stapler. Cystic artery was clamped with four clips of Hemoclips. It was divided. Using primarily blunt dissection, the gallbladder was then from the infrahepatic bed using Kitner dissector. It was placed in an Endopouch. Because of the size of the gallbladder and stones, the operative port had to be enlarged in order to extract the gallbladder. Irrigation was carried out, and hemostasis was achieved. Because of the amount of surrounding inflammation, a #10 Nasim drain was placed in the subhepatic space and brought out through the most lateral port site. CO2 was allowed to escape from the abdomen and the ports were removed. Fascia at the umbilicus was closed with interrupted 0 Vicryl. Skin incisions were closed with ayse. The drain was secured with 2-0 nylon. The patient tolerated the procedure well. Tegaderm dressings were placed. He was awakened, extubated, and transferred to the postanesthetic care unit in stable, satisfactory condition. LCS:dior Job ID: [id number] Doc ID: [id number] Aysha Mcginnis M.D.
== END 2020-04-28 19:16 | disposition home or self-care (01) ==
LOC: ED 09:23 → MEDSUR 09:23
PROVIDERS: ADMIT Family Medicine Adult Medicine; ATTEND Family Medicine Adult Medicine

== ENCOUNTER 2023-12-12 11:49 | Inpatient (IN) ==
[2023-12-12 12:27] LABS: Basophils # (Auto) 0.03 K/mcL (0.00-0.30); Basophils % (Auto) 0.3 % (0.0-2.0); Eosinophils # (Auto) 0.06 K/mcL (0.00-0.70); Eosinophils % (Auto) 0.6 % (0.0-7.0); Hematocrit 44.4 % (40.1-51.0); Lymphocytes # (Auto) 2.14 K/mcL (1.50-4.80); Lymphocytes % (Auto) 21.3 % (15.5-49.0); Mean Cell Volume 87.2 fL (80.0-100.0); Mean Corpuscular HGB Conc 33.8 g/dL (31.0-36.0); Mean Platelet Volume 10.1 fL (8.8-12.5); Monocytes # (Auto) 0.53 K/mcL (0.10-0.90); Monocytes % (Auto) 5.3 % (1.0-12.0); Neutrophils % (Auto) 72.3 % (38.0-78.0); Platelet Count 199 K/mcL (140-440); RBC 5.09 M/mcL (4.63-6.08); Red Cell Distribution Width 13.2 % (11.5-14.5)
[2023-12-12] MEDS: FUROSEMIDE 40 MG/4 ML VIAL IV ONE (12:35)
[2023-12-12 12:41] LABS: ALT/SGPT 10 U/L (<40); AST/SGOT 19 U/L (<40); Albumin 4.4 gm/dL (3.2-5.2); Albumin/Globulin Ratio 1.2 (1.0-2.3); Alkaline Phosphatase 78 U/L (39-117); Bilirubin,Total 0.8 mg/dL (0.1-1.0); Blood Urea Nitrogen 33 mg/dL (8-23); Calcium 9.7 mg/dL (8.6-10.4); Carbon Dioxide 19 mmol/L (22-30); Chloride 106 mmol/L (96-108); Globulin 3.6 gm/dL (2.2-3.7); Glomerular Filtration Rate 47; Glucose 166 mg/dL (70-105)
[2023-12-12 12:58] LABS: INR 1.1 (0.9-1.1); Prothrombin Time 14.5 sec (11.9-14.5)
[2023-12-12] MEDS ORDERED: DEXTROSE 50% 50 ML VIAL IV PRN (16:39)
[2023-12-12] MEDS ORDERED: ACETAMINOPHEN 325 MG TABLET PO PRN (16:39)
[2023-12-12] MEDS ORDERED: IPRATROPIUM/ALBUTEROL 3 ML AMPUL.NEB NEB PRN (16:39)
[2023-12-12] MEDS ORDERED: traZODone HCL 50 MG TABLET PO PRN (16:39)
[2023-12-12] MEDS ORDERED: guaiFENesin/DEXTROMETHORPHAN 5ML UD CUP PO PRN (16:39)
[2023-12-12] MEDS ORDERED: DEXTROSE 31 GM ORAL.SUSP PO PRN (16:39)
[2023-12-12 16:48] LABS: Appearance,Urine Clear (Clear); Bacteria,Urine 0 /hpf (0); Bilirubin,Urine Negative (Negative); Color,Urine Yellow; Culture Indicated,Urine No; Glucose,Urine (UA) Negative (Negative); Ketones,Urine Negative (Negative); Leukocyte Esterase,Urine Negative /uL (Negative); Nitrate,Urine Negative (Negative); Protein,Urine 100 mg/dL (Negative); Specific Gravity,Urine 1.015 (1.000-1.035); Urine Blood Negative ery/mcL (Negative); Urine Hyaline Cast 1 /lph (0-2); Urine RBC 0 /hpf (0-3); Urine Squamous Epithelial Cell 0 /hpf (0-4); Urine WBC 0 /hpf (0-4); Urobilinogen,Urine Normal
[2023-12-12] MEDS: INSULIN LISPRO 1 UNIT/0.01 ML UNIT SQ SCH (16:48)
[2023-12-12] MEDS: FUROSEMIDE 40 MG/4 ML VIAL IV SCH (16:57)
[2023-12-12] MEDS: ONDANSETRON 4 MG/2 ML VIAL IV PRN (17:39)
[2023-12-12] MEDS: 0.9 % SODIUM CHLORIDE 10 ML SYRINGE IV SCH (20:30)
[2023-12-12] MEDS: SENNOSIDES 1 TABLET PO SCH (20:31)
[2023-12-12] MEDS: DOCUSATE SODIUM 100 MG CAPSULE PO SCH (20:31)
[2023-12-12] MEDS: HEPARIN 5,000 UNIT/ML VIAL SQ SCH (20:33)
[2023-12-13 04:29] LABS: Basophils # (Auto) 0.03 K/mcL (0.00-0.30); Basophils % (Auto) 0.4 % (0.0-2.0); Eosinophils # (Auto) 0.26 K/mcL (0.00-0.70); Eosinophils % (Auto) 3.7 % (0.0-7.0); Hematocrit 38.7 % (40.1-51.0); Hemoglobin 12.9 g/dL (13.7-17.5); Lymphocytes # (Auto) 2.18 K/mcL (1.50-4.80); Lymphocytes % (Auto) 30.8 % (15.5-49.0); Mean Cell Volume 88.6 fL (80.0-100.0); Mean Corpuscular HGB Conc 33.3 g/dL (31.0-36.0); Monocytes # (Auto) 0.62 K/mcL (0.10-0.90); Monocytes % (Auto) 8.8 % (1.0-12.0); Neutrophils % (Auto) 56.3 % (38.0-78.0); Platelet Count 175 K/mcL (140-440); RBC 4.37 M/mcL (4.63-6.08); Red Cell Distribution Width 13.2 % (11.5-14.5); WBC 7.1 K/mcL (4.5-11.0)
[2023-12-13 04:55] LABS: ALT/SGPT 6 U/L (<40); AST/SGOT 16 U/L (<40); Albumin 3.7 gm/dL (3.2-5.2); Albumin/Globulin Ratio 1.3 (1.0-2.3); Alkaline Phosphatase 60 U/L (39-117); Bilirubin,Total 0.7 mg/dL (0.1-1.0); Blood Urea Nitrogen 37 mg/dL (8-23); Carbon Dioxide 20 mmol/L (22-30); Chloride 106 mmol/L (96-108); Globulin 2.8 gm/dL (2.2-3.7); Glomerular Filtration Rate 40; Glucose 138 mg/dL (70-105)
[2023-12-13 05:58] LABS: Estimated Average Glucose(eAG) 128 mg/dL; Hemoglobin A1C 6.1 % Hgb (4.0-6.0)
[2023-12-13] MEDS: ASPIRIN 81 MG TAB.CHEW PO SCH (08:09)
[2023-12-13] MEDS: SIMVASTATIN 20 MG TABLET PO SCH (08:09)
[2023-12-13] MEDS: amLODIPine 10 MG TABLET PO SCH (08:09)
[2023-12-13] MEDS: CLOPIDOGREL 75 MG TABLET PO SCH (08:09)
[2023-12-13] MEDS: LISINOPRIL 20 MG TABLET PO SCH (08:09)
[2023-12-13] MEDS: MELATONIN 3 MG TABLET PO PRN (20:02)
[2023-12-13] MEDS: diphenhydrAMINE 25 MG CAPSULE PO PRN (20:02)
[2023-12-14 07:43] LABS: ALT/SGPT 5 U/L (<40); AST/SGOT 16 U/L (<40); Albumin 3.8 gm/dL (3.2-5.2); Albumin/Globulin Ratio 1.4 (1.0-2.3); Alkaline Phosphatase 60 U/L (39-117); Bilirubin,Direct 0.2 mg/dL (<0.3); Bilirubin,Total 0.7 mg/dL (0.1-1.0); Blood Urea Nitrogen 45 mg/dL (8-23); Calcium 9.1 mg/dL (8.6-10.4); Carbon Dioxide 23 mmol/L (22-30); Chloride 107 mmol/L (96-108); Globulin 2.8 gm/dL (2.2-3.7); Glomerular Filtration Rate 35; Glucose 132 mg/dL (70-105); Lactate Dehydrogenase 167 U/L (135-225); Phosphorous 4.5 mg/dL (2.5-4.5); Triglycerides 151 mg/dL (<150); Uric Acid 11.4 mg/dL (2.5-8.0)
[2023-12-14] MEDS: LOSARTAN 25 MG TABLET PO SCH (09:05)
[2023-12-14] MEDS: traZODone HCL 50 MG TABLET PO SCH (20:17)
[2023-12-14] MEDS: MELATONIN 3 MG TABLET PO SCH (20:17)
[2023-12-15 06:37] LABS: Blood Urea Nitrogen 47 mg/dL (8-23); Calcium 8.9 mg/dL (8.6-10.4); Carbon Dioxide 21 mmol/L (22-30); Chloride 107 mmol/L (96-108); Glomerular Filtration Rate 40; Glucose 138 mg/dL (70-105)
== END 2023-12-15 14:25 | disposition home or self-care (01) | DRG 291 ==
LOC: ED 11:49 → MEDSUR 16:34
PROVIDERS: ADMIT Internal Medicine; ATTEND Internal Medicine

== ENCOUNTER 2024-01-08 03:35 | Inpatient (IN) ==
[2024-01-08] MEDS: IPRATROPIUM/ALBUTEROL 3 ML AMPUL.NEB NEB ONE (03:45)
[2024-01-08] MEDS: DEXAMETHASONE 10 MG/ML VIAL IV ONE (03:56)
[2024-01-08] MEDS: LEVALBUTEROL 1.25 MG/3 ML AMPUL.NEB NEB ONE ×3 (03:58→06:16)
[2024-01-08 04:04] LABS: Basophils # (Auto) 0.05 K/mcL (0.00-0.30); Basophils % (Auto) 0.4 % (0.0-2.0); Eosinophils # (Auto) 0.42 K/mcL (0.00-0.70); Eosinophils % (Auto) 3.2 % (0.0-7.0); Hematocrit 43.9 % (40.1-51.0); Hemoglobin 14.8 g/dL (13.7-17.5); Lymphocytes # (Auto) 2.36 K/mcL (1.50-4.80); Lymphocytes % (Auto) 18.1 % (15.5-49.0); Mean Corpuscular HGB Conc 33.7 g/dL (31.0-36.0); Mean Platelet Volume 10.2 fL (8.8-12.5); Monocytes # (Auto) 0.68 K/mcL (0.10-0.90); Monocytes % (Auto) 5.2 % (1.0-12.0); Neutrophils % (Auto) 72.9 % (38.0-78.0); Platelet Count 187 K/mcL (140-440); RBC 4.99 M/mcL (4.63-6.08); Red Cell Distribution Width 13.6 % (11.5-14.5); WBC 13.1 K/mcL (4.5-11.0)
[2024-01-08] MEDS: FUROSEMIDE 100 MG/10 ML VIAL IV ONE (04:12)
[2024-01-08 04:24] LABS: ALT/SGPT 14 U/L (<40); AST/SGOT 22 U/L (<40); Albumin 4.3 gm/dL (3.2-5.2); Albumin/Globulin Ratio 1.3 (1.0-2.3); Alkaline Phosphatase 80 U/L (39-117); Bilirubin,Total 0.7 mg/dL (0.1-1.0); Blood Urea Nitrogen 24 mg/dL (8-23); Calcium 9.4 mg/dL (8.6-10.4); Carbon Dioxide 18 mmol/L (22-30); Chloride 107 mmol/L (96-108); Globulin 3.4 gm/dL (2.2-3.7); Glomerular Filtration Rate 47; Glucose 191 mg/dL (70-105)
[2024-01-08 04:24] LABS: Creatine Kinase 83 U/L (24-195)
[2024-01-08 04:25] LABS: Creatine Kinase 84 U/L (24-195); Creatine Kinase MB 2.8 ng/mL (<6.7)
[2024-01-08] MEDS: cefTRIAXone 2 GM in DEXTROSE 5% IN WATER 50 ML IV ONE (06:07)
[2024-01-08 06:14] LABS: INR 1.1 (0.9-1.1); Partial Thromboplastin Time 33.9 sec (20.0-37.0); Prothrombin Time 14.6 sec (11.9-14.5)
[2024-01-08] MEDS: AZITHROMYCIN 500 MG in DEXTROSE 5% IN WATER 250 ML IV ONE (07:31)
[2024-01-08] MEDS ORDERED: SENNOSIDES 1 TABLET PO PRN (08:36)
[2024-01-08] MEDS ORDERED: ACETAMINOPHEN 325 MG TABLET PO PRN (08:36)
[2024-01-08] MEDS ORDERED: LACTULOSE 20 GM/30 ML ORAL.SOL PO PRN (08:36)
[2024-01-08] MEDS ORDERED: HYDROcodone/APAP 5/325MG TABLET PO PRN (08:36)
[2024-01-08] MEDS ORDERED: DEXTROSE 31 GM ORAL.SUSP PO PRN (08:54)
[2024-01-08] MEDS ORDERED: DEXTROSE 50% 50 ML VIAL IV PRN (08:54)
[2024-01-08] MEDS: PNEUMOCOCCAL 23-VAL P-SAC VAC 0.5 ML SYRINGE IM ONE (09:43)
[2024-01-08] MEDS: HEPARIN 5,000 UNIT/ML VIAL SQ SCH (10:04)
[2024-01-08] MEDS: DOCUSATE SODIUM 100 MG CAPSULE PO SCH (10:05)
[2024-01-08] MEDS: INSULIN LISPRO 1 UNIT/0.01 ML UNIT SQ SCH (11:30)
[2024-01-08] MEDS: metFORMIN 500 MG TAB.XL.24H PO SCH (12:14)
[2024-01-08] MEDS: IPRATROPIUM/ALBUTEROL 3 ML AMPUL.NEB NEB SCH (13:30)
[2024-01-08] MEDS: 0.9 % SODIUM CHLORIDE 10 ML SYRINGE IV SCH (13:31)
[2024-01-08] MEDS: FUROSEMIDE 20 MG/2 ML VIAL IV SCH (13:32)
[2024-01-08] MEDS: CARVEDILOL 3.125 MG TABLET PO SCH (16:59)
[2024-01-08] MEDS: MELATONIN 3 MG TABLET PO PRN (20:14)
[2024-01-08] MEDS: ATORVASTATIN 40 MG TABLET PO SCH (20:14)
[2024-01-09 06:54] LABS: Thyroid Stimulating Hormone 1.29 uIU/mL (0.27-5.01)
[2024-01-09 08:25] LABS: Basophils # (Auto) 0.03 K/mcL (0.00-0.30); Basophils % (Auto) 0.3 % (0.0-2.0); Eosinophils # (Auto) 0 K/mcL (0.00-0.70); Eosinophils % (Auto) 0 % (0.0-7.0); Hematocrit 37.6 % (40.1-51.0); Hemoglobin 12.7 g/dL (13.7-17.5); Lymphocytes # (Auto) 1.72 K/mcL (1.50-4.80); Lymphocytes % (Auto) 18.7 % (15.5-49.0); Mean Corpuscular HGB Conc 33.8 g/dL (31.0-36.0); Mean Platelet Volume 10.6 fL (8.8-12.5); Monocytes # (Auto) 0.58 K/mcL (0.10-0.90); Monocytes % (Auto) 6.3 % (1.0-12.0); Neutrophils % (Auto) 73.9 % (38.0-78.0); Platelet Count 160 K/mcL (140-440); RBC 4.32 M/mcL (4.63-6.08); Red Cell Distribution Width 13.5 % (11.5-14.5); WBC 9.2 K/mcL (4.5-11.0)
[2024-01-09] MEDS: cefTRIAXone 2 GM in DEXTROSE 5% IN WATER 50 ML IV SCH (09:07)
[2024-01-09] MEDS: amLODIPine 5 MG TABLET PO SCH (09:08)
[2024-01-09] MEDS: ASPIRIN 81 MG TAB.CHEW PO SCH (09:08)
[2024-01-09] MEDS: cefTRIAXone 2 GM VIAL ONE (09:08)
[2024-01-09] MEDS: AZITHROMYCIN 500 MG in DEXTROSE 5% IN WATER 250 ML IV SCH (10:47)
[2024-01-09 11:35] LABS: ALT/SGPT 10 U/L (<40); AST/SGOT 15 U/L (<40); Albumin 3.9 gm/dL (3.2-5.2); Albumin/Globulin Ratio 1.3 (1.0-2.3); Alkaline Phosphatase 59 U/L (39-117); Bilirubin,Total 0.4 mg/dL (0.1-1.0); Blood Urea Nitrogen 40 mg/dL (8-23); Calcium 9.4 mg/dL (8.6-10.4); Carbon Dioxide 16 mmol/L (22-30); Chloride 107 mmol/L (96-108); Glomerular Filtration Rate 37; Glucose 162 mg/dL (70-105)
[2024-01-09] MEDS: ONDANSETRON 4 MG/2 ML VIAL IV PRN (17:27)
[2024-01-09] MEDS: 0.45 % SODIUM CHLORIDE 1,000 ML IV SCH (23:20)
[2024-01-10 06:25] LABS: Basophils # (Auto) 0.03 K/mcL (0.00-0.30); Basophils % (Auto) 0.3 % (0.0-2.0); Eosinophils # (Auto) 0.28 K/mcL (0.00-0.70); Eosinophils % (Auto) 3.1 % (0.0-7.0); Hematocrit 39.5 % (40.1-51.0); Hemoglobin 13.2 g/dL (13.7-17.5); Lymphocytes # (Auto) 2.58 K/mcL (1.50-4.80); Lymphocytes % (Auto) 28.3 % (15.5-49.0); Mean Cell Volume 88.8 fL (80.0-100.0); Mean Corpuscular HGB Conc 33.4 g/dL (31.0-36.0); Mean Platelet Volume 10.7 fL (8.8-12.5); Monocytes # (Auto) 0.66 K/mcL (0.10-0.90); Monocytes % (Auto) 7.2 % (1.0-12.0); Platelet Count 180 K/mcL (140-440); RBC 4.45 M/mcL (4.63-6.08); Red Cell Distribution Width 13.5 % (11.5-14.5); WBC 9.1 K/mcL (4.5-11.0)
[2024-01-10 06:36] LABS: ALT/SGPT 8 U/L (<40); AST/SGOT 15 U/L (<40); Albumin 3.8 gm/dL (3.2-5.2); Albumin/Globulin Ratio 1.3 (1.0-2.3); Alkaline Phosphatase 56 U/L (39-117); Bilirubin,Total 0.4 mg/dL (0.1-1.0); Blood Urea Nitrogen 47 mg/dL (8-23); Calcium 9.2 mg/dL (8.6-10.4); Carbon Dioxide 21 mmol/L (22-30); Chloride 106 mmol/L (96-108); Globulin 2.9 gm/dL (2.2-3.7); Glomerular Filtration Rate 43; Glucose 119 mg/dL (70-105)
== END 2024-01-10 13:07 | disposition home or self-care (01) | DRG 871 ==
LOC: ED 03:35 → ICU 08:28
PROVIDERS: ADMIT Internal Medicine; ATTEND Internal Medicine

== ENCOUNTER 2024-08-14 20:54 | Inpatient (IN) ==
[2024-08-14] MEDS ORDERED: IOPAMIDOL 100 ML BOTTLE IV ONE (20:55)
[2024-08-14] MEDS: ASPIRIN 81 MG TAB.CHEW CHEWED ONE (21:40)
[2024-08-14] MEDS: NITROGLYCERIN 0.4 MG TAB.SUBL SL PRN (21:40)
[2024-08-14 22:05] LABS: Basophils # (Auto) 0.04 K/mcL (0.00-0.30); Basophils % (Auto) 0.5 % (0.0-2.0); Eosinophils # (Auto) 0.32 K/mcL (0.00-0.70); Hematocrit 36.2 % (40.1-51.0); Hemoglobin 12.7 g/dL (13.7-17.5); Lymphocytes # (Auto) 2.16 K/mcL (1.50-4.80); Lymphocytes % (Auto) 27.1 % (15.5-49.0); Mean Cell Volume 86.2 fL (80.0-100.0); Mean Corpuscular HGB Conc 35.1 g/dL (31.0-36.0); Mean Platelet Volume 10.4 fL (8.8-12.5); Monocytes # (Auto) 0.68 K/mcL (0.10-0.90); Monocytes % (Auto) 8.5 % (1.0-12.0); Neutrophils % (Auto) 59.8 % (38.0-78.0); Platelet Count 151 K/mcL (140-440)
[2024-08-14 22:40] LABS: ALT/SGPT 17 U/L (<40); AST/SGOT 21 U/L (<40); Albumin 3.5 gm/dL (3.2-5.2); Albumin/Globulin Ratio 1.3 (1.0-2.3); Alkaline Phosphatase 90 U/L (39-117); Bilirubin,Total 0.4 mg/dL (0.1-1.0); Blood Urea Nitrogen 33 mg/dL (8-23); Calcium 8.9 mg/dL (8.6-10.4); Carbon Dioxide 24 mmol/L (22-30); Chloride 107 mmol/L (96-108); Globulin 2.7 gm/dL (2.2-3.7); Glomerular Filtration Rate 56; Glucose 186 mg/dL (70-105); Potassium 3.6 mmol/L (3.3-5.1); Sodium 142 mmol/L (133-145)
[2024-08-14 22:46] LABS: Appearance,Urine Clear (Clear); Bilirubin,Urine Negative (Negative); Color,Urine Yellow; Glucose,Urine (UA) 100 mg/dL (Negative); Ketones,Urine Negative (Negative); Leukocyte Esterase,Urine Negative /uL (Negative); Nitrate,Urine Negative (Negative); PH,Urine 5.5 (5.0-9.0); Protein,Urine >=300 mg/dL (Negative); Specific Gravity,Urine 1.025 (1.000-1.035); Urine Blood Moderate ery/mcL (Negative); Urine Hyaline Cast 2 /lph (0-2); Urine RBC 2 /hpf (0-3); Urine Squamous Epithelial Cell 2 /hpf (0-4); Urine WBC 2 /hpf (0-4); Urobilinogen,Urine Normal
[2024-08-14 23:02] LABS: INR 1.1 (0.9-1.1); Prothrombin Time 14.3 sec (11.9-14.5)
[2024-08-15] MEDS: FUROSEMIDE 40 MG/4 ML VIAL IV ONE
[2024-08-15] MEDS: FUROSEMIDE 20 MG/2 ML VIAL IV ONE (00:09)
[2024-08-15] MEDS: hydrALAZINE 20 MG/ML VIAL ONE ×2 (03:30→07:16)
[2024-08-15] MEDS: hydrALAZINE 20 MG/ML VIAL IV PRN (03:30)
[2024-08-15] MEDS: 0.9 % SODIUM CHLORIDE 10 ML SYRINGE IV SCH ×2 (03:31→13:45)
[2024-08-15] MEDS ORDERED: morphine 4 MG/ML VIAL IV PRN (09:12)
[2024-08-15] MEDS ORDERED: DEXTROSE 31 GM ORAL.SUSP PO PRN (09:12)
[2024-08-15] MEDS ORDERED: IPRATROPIUM/ALBUTEROL 3 ML AMPUL.NEB NEB PRN (09:12)
[2024-08-15] MEDS ORDERED: ONDANSETRON 4 MG/2 ML VIAL IV PRN (09:12)
[2024-08-15] MEDS ORDERED: DEXTROSE 50% 50 ML VIAL IV PRN (09:12)
[2024-08-15] MEDS: DOCUSATE SODIUM 100 MG CAPSULE PO SCH ×2 (13:38→20:56)
[2024-08-15] MEDS: INSULIN LISPRO 1 UNIT/0.01 ML UNIT SQ SCH (13:45)
[2024-08-15] MEDS: GABAPENTIN 300 MG CAPSULE PO SCH (15:44)
[2024-08-15] MEDS: CARVEDILOL 3.125 MG TABLET PO SCH (17:42)
[2024-08-15] MEDS: ATORVASTATIN 40 MG TABLET PO SCH (20:56)
[2024-08-15] MEDS: SENNOSIDES 1 TABLET PO SCH (20:57)
[2024-08-15] MEDS ORDERED: SENNOSIDES 1 TABLET PO SCH (21:00)
[2024-08-15] MEDS ORDERED: ATORVASTATIN 40 MG TABLET PO SCH (21:00)
[2024-08-15] MEDS ORDERED: LABETALOL HCL 20 MG/4 ML VIAL IV PRN (21:50)
[2024-08-16 06:58] LABS: ALT/SGPT 15 U/L (<40); AST/SGOT 24 U/L (<40); Albumin 3.3 gm/dL (3.2-5.2); Albumin/Globulin Ratio 1.1 (1.0-2.3); Alkaline Phosphatase 76 U/L (39-117); Bilirubin,Direct 0.2 mg/dL (<0.3); Bilirubin,Total 0.8 mg/dL (0.1-1.0); Blood Urea Nitrogen 28 mg/dL (8-23); Calcium 9.2 mg/dL (8.6-10.4); Carbon Dioxide 22 mmol/L (22-30); Chloride 110 mmol/L (96-108); Globulin 2.9 gm/dL (2.2-3.7); Glomerular Filtration Rate 56; Glucose 186 mg/dL (70-105); Lactate Dehydrogenase 269 U/L (135-225); Phosphorous 3.4 mg/dL (2.5-4.5); Potassium 3.4 mmol/L (3.3-5.1); Sodium 144 mmol/L (133-145); Triglycerides 137 mg/dL (<150); Uric Acid 8.9 mg/dL (2.5-8.0)
[2024-08-16 07:55] LABS: Estimated Average Glucose(eAG) 146 mg/dL; Hemoglobin A1C 6.7 % Hgb (4.0-6.0)
[2024-08-16] MEDS ORDERED: TORSEMIDE 10 MG TABLET PO SCH (09:00)
[2024-08-16] MEDS ORDERED: LOSARTAN 25 MG TABLET PO SCH (09:00)
[2024-08-16] MEDS: CLOPIDOGREL 75 MG TABLET PO SCH (10:34)
[2024-08-16] MEDS: ASPIRIN 81 MG TAB.CHEW PO SCH (10:34)
[2024-08-16] MEDS: POTASSIUM CHLORIDE 10 MEQ TABLET PO SCH (10:36)
[2024-08-16] MEDS: INSULIN GLARGINE, HUMAN 1 UNIT/0.01 ML SQ SCH (10:36)
[2024-08-16] MEDS: ENOXAPARIN 40 MG/0.4 ML SYRINGE SQ SCH (10:37)
[2024-08-16] MEDS: DEXTROSE 5%-1/2NS W/20MEQ KCL 1,000 ML IV SCH (12:01)
[2024-08-16] MEDS: DEXTROSE 5%-1/2NS W/10MEQ KCL 1,000 ML IV SCH (13:15)
[2024-08-16] MEDS: GABAPENTIN 300 MG CAPSULE PO SCH (21:10)
[2024-08-17 06:54] LABS: ALT/SGPT 13 U/L (<40); AST/SGOT 23 U/L (<40); Alkaline Phosphatase 73 U/L (39-117); Bilirubin,Direct < 0.2 mg/dL (0-0.3); Bilirubin,Total 0.9 mg/dL (0.1-1.0); Blood Urea Nitrogen 23 mg/dL (8-23); Calcium 8.8 mg/dL (8.6-10.4); Carbon Dioxide 23 mmol/L (22-30); Chloride 111 mmol/L (96-108); Globulin 2.9 gm/dL (2.2-3.7); Glomerular Filtration Rate 51; Glucose 164 mg/dL (70-105); Lactate Dehydrogenase 260 U/L (135-225); Potassium 3.6 mmol/L (3.3-5.1); Sodium 144 mmol/L (133-145); Triglycerides 159 mg/dL (<150); Uric Acid 8.9 mg/dL (2.5-8.0)
[2024-08-17 08:09] LABS: HDL Cholesterol 29 mg/dL (>40); LDL Cholesterol,Calculated 77 mg/dL (<100); Non-HDL Cholesterol 108 mg/dL (<130); Triglycerides 156 mg/dL (<150)
[2024-08-17] MEDS: CARVEDILOL 3.125 MG TABLET PO SCH (08:28)
[2024-08-17] MEDS: ACETAMINOPHEN 325 MG TABLET PO PRN (17:41)
[2024-08-17] MEDS: oxyCODONE IR 5 MG TABLET PO PRN (19:43)
[2024-08-17] MEDS: CHLORHEXIDINE GLUCONATE 15 ML UDC SWABMOUTH SCH (19:52)
[2024-08-18 06:38] LABS: ALT/SGPT 11 U/L (<40); AST/SGOT 25 U/L (<40); Albumin 3.2 gm/dL (3.2-5.2); Albumin/Globulin Ratio 1.1 (1.0-2.3); Alkaline Phosphatase 75 U/L (39-117); Bilirubin,Direct 0.3 mg/dL (<0.3); Bilirubin,Total 0.9 mg/dL (0.1-1.0); Blood Urea Nitrogen 21 mg/dL (8-23); Calcium 8.8 mg/dL (8.6-10.4); Carbon Dioxide 24 mmol/L (22-30); Chloride 113 mmol/L (96-108); Globulin 2.8 gm/dL (2.2-3.7); Glomerular Filtration Rate 51; Glucose 137 mg/dL (70-105); Lactate Dehydrogenase 285 U/L (135-225); Phosphorous 3.4 mg/dL (2.5-4.5); Potassium 3.8 mmol/L (3.3-5.1); Sodium 146 mmol/L (133-145); Triglycerides 146 mg/dL (<150); Uric Acid 8.8 mg/dL (2.5-8.0)
[2024-08-18] MEDS: LOSARTAN 25 MG TABLET PO SCH (08:23)
[2024-08-18] MEDS: DEXTROSE 5% IN WATER 1,000 ML IV ONE (10:01)
[2024-08-18] MEDS: TAMSULOSIN 0.4 MG CAPSULE PO ONE (14:05)
[2024-08-18] MEDS: ENALAPRILAT 1.25 MG/ML VIAL IV PRN (15:41)
[2024-08-18] MEDS: TAMSULOSIN 0.4 MG CAPSULE PO SCH (20:38)
[2024-08-19 06:16] LABS: ALT/SGPT 12 U/L (<40); AST/SGOT 22 U/L (<40); Albumin 3.2 gm/dL (3.2-5.2); Albumin/Globulin Ratio 1.1 (1.0-2.3); Alkaline Phosphatase 77 U/L (39-117); Bilirubin,Direct 0.4 mg/dL (<0.3); Bilirubin,Total 1.1 mg/dL (0.1-1.0); Blood Urea Nitrogen 24 mg/dL (8-23); Calcium 9.1 mg/dL (8.6-10.4); Carbon Dioxide 24 mmol/L (22-30); Chloride 110 mmol/L (96-108); Globulin 2.9 gm/dL (2.2-3.7); Glomerular Filtration Rate 47; Glucose 145 mg/dL (70-105); Lactate Dehydrogenase 277 U/L (135-225); Potassium 3.9 mmol/L (3.3-5.1); Sodium 144 mmol/L (133-145); Triglycerides 135 mg/dL (<150); Uric Acid 8.4 mg/dL (2.5-8.0)
[2024-08-19] MEDS: LOSARTAN 50 MG TABLET PO SCH (08:04)
[2024-08-19] MEDS: DEXTROSE 5% IN WATER 1,000 ML IV ONE (08:05)
[2024-08-19] MEDS: GABAPENTIN 300 MG CAPSULE PO SCH (10:23)
[2024-08-20 06:58] LABS: ALT/SGPT 18 U/L (<40); AST/SGOT 29 U/L (<40); Albumin 3.2 gm/dL (3.2-5.2); Albumin/Globulin Ratio 1.2 (1.0-2.3); Alkaline Phosphatase 78 U/L (39-117); Bilirubin,Direct 0.4 mg/dL (<0.3); Bilirubin,Total 0.9 mg/dL (0.1-1.0); Blood Urea Nitrogen 24 mg/dL (8-23); Calcium 8.8 mg/dL (8.6-10.4); Carbon Dioxide 23 mmol/L (22-30); Chloride 108 mmol/L (96-108); Globulin 2.7 gm/dL (2.2-3.7); Glomerular Filtration Rate 56; Glucose 156 mg/dL (70-105); Lactate Dehydrogenase 252 U/L (135-225); Phosphorous 3.4 mg/dL (2.5-4.5); Potassium 3.7 mmol/L (3.3-5.1); Sodium 142 mmol/L (133-145); Triglycerides 135 mg/dL (<150); Uric Acid 8.2 mg/dL (2.5-8.0)
[2024-08-20] MEDS: ENALAPRILAT 1.25 MG/ML VIAL IV PRN (12:19)
[2024-08-20] MEDS: SUCRALFATE 1 GM/10 ML ORAL.SUSP PO ONE (12:21)
[2024-08-20] MEDS: MAG HYDROX/AL HYDROX/SIMETH 30 ML ORAL.SUSP PO ONE (12:26)
[2024-08-21] MEDS: traZODone HCL 50 MG TABLET PO PRN (01:17)
[2024-08-21] MEDS: amLODIPine 5 MG TABLET PO SCH (15:07)
[2024-08-21] MEDS: ENALAPRILAT 1.25 MG/ML VIAL IV PRN (20:54)
[2024-08-22] MEDS: LOSARTAN 50 MG TABLET PO SCH (08:10)
[2024-08-22] MEDS: amLODIPine 5 MG TABLET PO SCH (08:10)
[2024-08-24 03:56] VITALS: TEMP 98.5
[2024-08-24 07:59] VITALS: O2SAT 99
== END 2024-08-24 11:13 | DRG 64 ==
LOC: MEDSUR 20:54 → ED 20:54 → MEDSUR 08-15 02:17 → ICU 08-16 11:09 → MEDSUR 08-20 12:52
PROVIDERS: ADMIT Internal Medicine; ATTEND Internal Medicine